=== PATIENT | male | born 1995 | race Caucasian/White ===

== ENCOUNTER → 2023-11-04 | Outpatient (CLI) | payer OTHER | LOC: M WUC 15:39 | PROVIDERS: ATTEND Student in an Organized Health Care Education/Training Program | DX: M25.572 Pain in left ankle and joints of left foot (principal); M79.89 Other specified soft tissue disorders ==

== ENCOUNTER 2023-11-08 19:59 | Emergency (ER) | payer OTHER ==
[~2023-11-08] VITALS: Ht 185.4 cm; Wt 117.9 kg
[2023-11-08 20:01] VITALS: BP 152/68; TEMP 97.8; O2SAT 97
[2023-11-09] MEDS ORDERED: AMOX875T2 PO (12:47)
== END 2023-11-08 20:20 | disposition left against medical advice (07) ==
LOC: M ED 19:59
DX: Z53.21 Procedure and treatment not carried out due to patient leaving prior to being seen by health care provider (principal)

== ENCOUNTER 2023-11-09 09:20 | Emergency (ER) | payer OTHER ==
[~2023-11-09] VITALS: Ht 185.4 cm; Wt 117.3 kg
[2023-11-09 09:25] VITALS: TEMP 97.8; O2SAT 98
[2023-11-09] MEDS ORDERED: AMOX875T2 PO (12:47)
[2023-11-09] MEDS: BOOSTRIX VACCINE (TETANUS/DIPHTH/ACEL. PERTUSSIS) 0.5ML SYR IM.IMMUN ONE (12:57)
[2023-11-09 13:06] VITALS: BP 141/74
== END 2023-11-09 13:06 | disposition home or self-care (01) ==
LOC: M ED 09:20
DX: S51.852A Open bite of left forearm, initial encounter (principal); W54.0XXA Bitten by dog, initial encounter; Y93.89 Activity, other specified; Y92.017 Garden or yard in single-family (private) house as the place of occurrence of the external cause; Y99.9 Unspecified external cause status; Z23 Encounter for immunization